=== PATIENT | female | born 1930 | race African-American/Black ===

== ENCOUNTER 2017-01-30 16:30 | Emergency (ER) | payer OTHER ==
[~2017-01-30] VITALS: Ht 165.1 cm; Wt 65.3 kg
[2017-01-30 17:12] LABS: Hemoglobin 12.1 g/dL (12.2-16.2); Mean Corpuscular Hemoglobin 33.6 pg (28.0-32.0); Mean Corpuscular Hgb Conc. 35.6 g/dL (32.0-36.0); Mean Corpuscular Volume 94.5 fL (80.0-100.0); Platelet Count (auto) 229 10^3/uL (140-450); Red Cell Distribution Width 18.1 % (11.6-16.0); White Blood Cell 7.8 10^3/uL (4.4-10.8)
[2017-01-30 17:14] LABS: Metamyelocytes % 0; Myelocytes % 0; Promyelocytes % 0; Reactive Lymphocytes 0
[2017-01-30 17:23] LABS: Albumin 3.5 g/dL (3.4-5.0); Anion Gap 13 (5-15); Aspartate Aminotransferase 21 U/L (15-37); BUN/Creatinine Ratio 17.1; Blood Urea Nitrogen 19 mg/dL (7-18); Calcium 9.4 mg/dL (8.5-10.1); Carbon Dioxide 25 mmol/L (21-32); Chloride 102 mmol/L (98-107); GFR African American 60 mL/min; GFR Non-African American 50 mL/min; Glucose 119 mg/dL (74-106); Magnesium 1.9 mg/dL (1.6-2.6); Potassium 3.2 mmol/L (3.5-5.1); Sodium 140 mmol/L (136-145)
[2017-01-30 17:27] LABS: Alkaline Phosphatase 88 U/L (45-117); Bilirubin, Total 0.4 mg/dL (0.2-1.0); Total Protein 6.8 g/dL (6.4-8.2)
[2017-01-30 17:56] LABS: Anisocytosis Moderate; Platelet Estimate Adequate
[2017-01-30 17:57] LABS: Ovalocytes FEW
[2017-01-30] MEDS ORDERED: ONDANSETRON HCL 4 MG/2 ML VIAL IV ONE ×2 (19:15→19:45)
[2017-01-30] MEDS ORDERED: MORPHINE SULF INJ 2 MG/ML SYRINGE 1ML IV ONE (19:15)
[2017-01-30] MEDS ORDERED: POTASSIUM CHL 20 Meq TABLET PO ONE ×2 (19:45→20:45)
[2017-01-30] MEDS ORDERED: HYDROmorphone HCL 2 MG/ML VL IV ONE (19:45)
[2017-01-31 00:50] VITALS: BP 130/69
== END 2017-01-31 00:49 | disposition home or self-care (01) ==
LOC: ER 16:37
DX: M94.0 Chondrocostal junction syndrome [Tietze] (principal); M19.90 Unspecified osteoarthritis, unspecified site; E87.6 Hypokalemia; R07.89 Other chest pain; Z88.1 Allergy status to other antibiotic agents; M81.0 Age-related osteoporosis without current pathological fracture; M79.7 Fibromyalgia
CPT/HCPCS: 36415; 71020; 71250; 80053; 83735; 84484; 85007; 85027; 93005; 96374; 96375; 99285; J1170; J2270; J2405

== ENCOUNTER 2017-09-29 14:33 | Emergency (ER) | payer OTHER ==
[~2017-09-29] VITALS: Ht 170.2 cm; Wt 63.5 kg
[2017-09-29 14:42] VITALS: BP 68/32
== END 2017-09-29 19:51 | disposition expired ==
LOC: EDBD 14:33 → ER 14:33
DX: I46.9 Cardiac arrest, cause unspecified (principal); I10 Essential (primary) hypertension; F32.9 Major depressive disorder, single episode, unspecified; M19.90 Unspecified osteoarthritis, unspecified site; Z88.1 Allergy status to other antibiotic agents
CPT/HCPCS: 92950